=== PATIENT | female | born 1960 | race Caucasian/White ===

== ENCOUNTER → 2019-07-09 | Outpatient (CLI) | payer OTHER ==
[~2019-07-09] MED LIST: HYDR1TAB94 PO; INSDET100; LOSA50 PO; METF500C PO; Novolog Fl100 UNIT/1 SQ; PRAV20 PO; SERT50 PO
[2019-07-09 16:49] LABS: Source, Urine Clean Catch
[2019-07-09 16:59] LABS: Bilirubin, Urine Neg (Neg); Blood, Urine Neg (Neg); Glucose Qualitative, Urine 4+ (Neg); Ketones, Urine 2+ (Neg); Leukocyte Esterase, Urine Neg (Neg); Nitrite, Urine Neg (Neg); Protein, Urine Neg (Neg); Specific Gravity, Urine 1.005 (1.003-1.022); Urobilinogen, Urine NORM (Normal)
[2019-07-09 17:11] LABS: Appearance, Urine Clear (Clear); Color, Urine Yellow (P-Yellow)
[2019-07-09 17:47] LABS: Protein, Urine Random <5.0 mg/dL (0.0-11.9)
== END | disposition home or self-care (01) ==
LOC: LAB 15:25 → LAB SHORT 15:25
PROVIDERS: Internal Medicine
DX: R31.0 Gross hematuria (principal)
CPT/HCPCS: 81003; 82570; 84156

== ENCOUNTER → 2025-07-10 | Outpatient (CLI) | payer MEDICARE, OTHER ==
[~2025-07-10] MED LIST changes: +DIAZEPAM; +GABAPENTIN; +HYDROCHLOROTHIA25 MG; +INSULIN GLARGINE; +LOSARTAN; +METFORMIN; +PIOGLITAZONE; +[UNRECOGNIZED DRUG - OTHER]
== END ==
LOC: LAB SHORT 16:01 → LAB 16:01
DX: R10.9 Unspecified abdominal pain (principal)
CPT/HCPCS: 87077; 87086; 87186